=== PATIENT | male | born 1995 | race Caucasian/White ===

== ENCOUNTER 2021-07-01 18:39 | Emergency (ER) | payer OTHER, SELFPAY ==
[2021-07-01 18:45] VITALS: BP 126/70; PULSE 70; RESP 20; TEMP 37.1; O2SAT 98
--- NOTE | 2021-07-01 19:02 | ED.URI ---
HPI - URI/Sore Throat General Chief Complaint: Fever Stated Complaint: fever,dizzy,numb finger tips, vomiting Source: patient and RN notes reviewed Mode of arrival: ambulatory Limitations: no limitations History of Present Illness MD elicited complaint: fever, cough and nasal congestion Onset (ago): hour(s) (10) Description of mucous: clear Able to tolerate fluids by mouth: Yes Exacerbating factors: exertion Relieving factors: nothing Associated symptoms: chills, myalgias, headache, shortness of breath, nausea, vomiting and other (tingling hands) Treatments prior to arrival: acetaminophen, ibuprofen and other (flu medicine) Related Data Home Medications Medication Instructions Recorded Confirmed No Home Medications 07/01/21 07/01/21 Allergies Allergy/AdvReac Type Severity Reaction Status Date / Time No Known Allergies Allergy Verified 07/01/21 18:54 Review of Systems Review of Systems: All systems reviewed & are unremarkable except as noted in HPI and below PMFSH Past Medical History Medical History (Updated 07/01/21 @ 19:55 by Castro Echeverria MD) No active medical problems Surgical History Surgical History (Updated 07/01/21 @ 19:28 by Castro Echeverria MD) No pertinent past surgical history Social History Social History (Updated 07/01/21 @ 19:27 by Castro Echeverria MD) Smoking packs per day: 1 Smoking cigarettes per day: 20.0 Smoking status: Current every day smoker Tobacco type: cigarettes Alcohol intake: current Alcohol use details: Occasional Exam Const: General: healthy appearing, no acute distress, alert and ill appearing acutely Nutritional Appearance: well nourished and thin Orientation/consciousness: patient oriented x3 HENMT: Head: normal to inspection Ears: external ears normal Mouth: Yes moist mucous membranes Eyes: Conjunctivae: conjunctivae normal Pupils: Equal, round and reactive pupils present EOM: EOMs intact bilaterally Neck: Neck: normal visual inspection Resp: Effort & Inspection: normal respiratory effort Auscultation: clear to auscultation bilaterally Cardio: Rate: regular rate Rhythm: regular rhythm GI: GI Palp: Yes Soft to palpation and No Tenderness to palpation present (GI) Auscultation: normal bowel sounds Back/Spine/Pelvis: Cervical Spine: cervical ROM normal Thoracic/Lumbar Spine: thoraco-lumbar ROM normal Skin: General skin exam: normal color Rashes: no rashes Neuro: General: patient oriented x3, moves all extremities, no meningeal signs and no focal motor deficits Speech: normal speech Gait exam (Neuro): Normal gait present Extrem: General: normal to inspection and no clubbing, cyanosis or edema Psych: Appearance: grossly normal and well kempt Mental Status: mental status grossly normal Affect: normal affect Attitude: cooperative Thought content: Yes Normal thought content present MDM - URI/Sore Throat Lab Data Attestation: I reviewed the patient's lab results. Discharge Plan Discharge Clinical Impression: COVID-19 Patient Disposition: Home, Self-Care Condition: Stable Instructions: COVID-19 (Coronavirus Disease 2019) (ED) Additional Instructions: self quarantine for 10 days. Notify everyone that she have come in contact with since she became L that your positive for COVID Prescriptions: No Action No Home Medications RF: 0 Follow-up/Referrals: UNKNOWN,DOCTOR [Primary Care Provider] - Stand Alone Forms: Work/School Release IP Time of Disposition: 19:55
--- NOTE | 2021-07-01 19:10 | PC.NURSE ---
report to MICHELLE Fischer.
[2021-07-01 19:44] LABS: Influenza A QL RT-PCR Negative (Negative); Influenza B QL RT-PCR Negative (Negative); SARS-CoV-2 RNA PCR Positive (Negative)
[2021-07-01 20:16] VITALS: BP 119/83; PULSE 87; RESP 19; O2SAT 99
== END 2021-07-01 20:18 | disposition home or self-care (01) ==
PROVIDERS: Emergency Provider Emergency Medicine
DX: U07.1 COVID-19 (principal)
CPT/HCPCS: 87502; 96372; 99283; C9803; J1100; U0003; U0005

== ENCOUNTER 2021-08-23 13:02 | Emergency (ER) | payer OTHER, SELFPAY ==
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
[2021-08-23 13:04] VITALS: BP 86/54; PULSE 132; RESP 16
[2021-08-23 13:13] VITALS: BP 127/79; PULSE 128; RESP 16; O2SAT 99
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
[2021-08-23 13:19] VITALS: BP 134/85; PULSE 134
[2021-08-23 13:59] VITALS: BP 122/77; PULSE 123; TEMP 35.7
[2021-08-23 14:13] VITALS: BP 128/77; PULSE 122; RESP 18; O2SAT 99
== END 2021-08-23 13:59 | disposition short-term general hospital (02) ==
PROVIDERS: Emergency Provider Internal Medicine Critical Care Medicine
DX: S09.90XA Unspecified injury of head, initial encounter (principal); S80.01XA Contusion of right knee, initial encounter; V87.7XXA Person injured in collision between other specified motor vehicles (traffic), initial encounter
CPT/HCPCS: 31500; 71045; 99285; J7030; L0150